=== PATIENT | male | born 1990 ===

== ENCOUNTER 2018-06-26 06:22 | Emergency (ER) | payer OTHER ==
[2018-06-26 06:39] VITALS: O2SAT 99
[2018-06-26] MEDS ORDERED: Sodium Chloride 0.9% 1,000 ML IV ONE (06:44)
[2018-06-26] MEDS ORDERED: Sucralfate 1 gm/10 ml Oral Susp UD PO STA (06:45)
--- NOTE | 2018-06-26 06:50 | C.PDOC ---
History Of Present Illness 28-year-old male presents to the ED for evaluation of epigastric abdominal pain which began 3 days ago. Patient reports associated nausea and two episodes of vomiting. Patient denies fever, chills, diarrhea, dysuria, or radiation of pain elsewhere. <Jaiden Rhodes - Last Filed: 06/26/18 06:50> History Per: Patient History/Exam Limitations: no limitations Onset/Duration Of Symptoms: Days (2) Current Symptoms Are (Timing): Still Present Location Of Pain/Discomfort: Epigastric Quality Of Discomfort: "Pain" Associated Symptoms: Nausea, Vomiting. denies: Fever, Chills, Diarrhea, Urinary Symptoms Additional History Per: Patient <Jaiden Rhodes - Last Filed: 06/26/18 06:50> <Brandon Smallwood - Last Filed: 06/26/18 08:33> Chief Complaint (Nursing): Abdominal Pain Past Medical History Reviewed: Historical Data, Nursing Documentation, Vital Signs Vital Signs: Last Vital Signs Temp 98.1 F 06/26/18 06:33 Pulse 70 06/26/18 06:33 Resp 22 06/26/18 06:33 BP 131/78 06/26/18 06:33 Pulse Ox 99 06/26/18 06:33 Primary Care Provider: FAMILY PROVIDER,NO - Medical History PMH: No Chronic Diseases Surgical History: No Surg Hx Family History: States: Unknown Family Hx - Social History Hx Alcohol Use: Yes Hx Substance Use: No <Jaiden Rhodes - Last Filed: 06/26/18 06:50> Vital Signs: Last Vital Signs Temp 98.1 F 06/26/18 06:33 Pulse 70 06/26/18 06:33 Resp 22 06/26/18 06:33 BP 131/78 06/26/18 06:33 Pulse Ox 99 06/26/18 06:50 <Brandon Smallwood - Last Filed: 06/26/18 08:33> Review Of Systems Constitutional: Negative for: Fever, Chills Gastrointestinal: Positive for: Nausea, Vomiting, Abdominal Pain (epigastric ). Negative for: Diarrhea Genitourinary: Negative for: Dysuria <Jaiden Rhodes - Last Filed: 06/26/18 06:50> Physical Exam - Physical Exam Appears: Non-toxic, No Acute Distress Skin: Normal Color, Warm, Dry Head: Atraumatic, Normacephalic Eye(s): bilateral: Normal Inspection Oral Mucosa: Moist Neck: Supple Chest: Symmetrical, No Deformity, No Tenderness Cardiovascular: Rhythm Regular, No Murmur Respiratory: Normal Breath Sounds, No Wheezing Gastrointestinal/Abdominal: Soft, Tenderness (epigastric ), No Guarding, No Rebound Extremity: Normal ROM, Capillary Refill (less than 2 seconds ) Neurological/Psych: Oriented x3, Normal Speech, Normal Cognition <Jaiden Rhodes - Last Filed: 06/26/18 06:50> ED Course And Treatment O2 Sat by Pulse Oximetry: 99 Progress Note: Bloodwork and urinalysis ordered and reviewed. Carafate Oral Syrup PO, Pepcid IVP, Zofran IVP and IV Fluids given. <Jaiden Rhodes Last Filed: 06/26/18 06:50> - Laboratory Results Result Diagrams: 06/26/18 07:11 06/26/18 07:11 <Brandon Smallwood - Last Filed: 06/26/18 08:33> Medical Decision Making Medical Decision Makin Signed out to me by Dr. Rhodes: 28 yr old male p/w abdominal pain, epigastric, gerd like. No other complaints of pain on exam. No fall or trauma. No CP or SOB. Pending labs, reassessment. 0739 cbc, cmp largely unremarkable lipase unremarkable no RUQ pain on exam. PT denies any chest pain, back pain or groin/ genitalia pain. pending UA. 2021 tolerated fluids well, in NAD, repeat abd exam non-ttp. UA w/ out UTI +hematuria, endorsed to pt to f/u w/ PMD and urologist, also endorsed need to f/u with GI. He is agreeable to plan clear for d/c home 0839 Patient states that he is feeling better, the pain to his chest has resolved, but he still has some pain to his back. Patient told that all labs are normal and that he appears to have gastritis. He will be given a referral for a gas troenterologist and urologist. Patient stable for discharge. <Brandon Smallwood - Last Filed: 06/26/18 08:33> Disposition <Jaiden Rhodes - Last Filed: 06/26/18 06:50> - Disposition Disposition Time: 08:23 <Brandon Smallwood - Last Filed: 06/26/18 08:33> - Disposition Referrals: [facility] [Outside] [facility] [Outside] [facility] [Outside] Manuela Barraza MD [Staff Provider] - Al Hodgson MD [Staff Provider] - Condition: STABLE Additional Instructions: SIMI CHEEK, thank you for letting us take care of you today. Your provider was Brandon Smallwood and you were treated for ABDOMINAL PAIN. The emergency medical care you received today was directed at your acute symptoms. If you were prescribed any medication, please fill it and take as directed. It may take several days for your symptoms to resolve. Return to the Emergency Dep artment if your symptoms worsen, do not improve, or if you have any other problems. Please contact your doctor or call one of the physicians/clinics you have been referred to that are listed on the Patient Visit Information form that is included in your discharge packet. Bring any paperwork you were given at discharge with you along with any medications you are taking to your follow up visit. Our treatment cannot replace ongoing medical care by a primary care provider outside of the emergency department. Thank you for allowing the [facility] team to be part of your care today. If you had an X-Ray or CT scan: A Radiologist will review the ED reading if any change in treatment is needed we will contact you. If you had a blood, urine, or wound culture: It will take several days for the results, if any change in treatment is needed we will contact you. If you had an STI test: It will take 48 hours for the results. Please call after 1 week if you have not heard back. Prescriptions: Famotidine [Pepcid] 20 mg PO Q24H PRN 5 Days #5 tab PRN Reason: Dyspepsia Instructions: Blood in the Urine (Hematuria) in Adults, Acute Abdomen (Belly Pain), Adult (DC), Gastritis (DC) Forms: [facility] (Persian), [facility] (German) Print Language: KINYARWANDA - Clinical Impression Clinical Impression: Gastritis, Abdominal pain, Hematuria - Scribe Statement The provider has reviewed the documentation as recorded by the Scribe (Gemini Gilbert) Provider Attestation: All medical record entries made by the Scribe were at my direction and personally dictated by me. I have reviewed the chart and agree that the record accurately reflects my personal performance of the history, physical exam, medical decision making, and the department course for this patient. I have also personally directed, reviewed, and agree with the discharge instructions and disposition. <Jaiden Rhodes - Last Filed: 06/26/18 06:50>
[2018-06-26] MEDS ORDERED: Sodium Chloride 0.9% 1,000 ML ONE (07:01)
[2018-06-26 07:22] LABS: BASO % 0.3 % (0.0-2.0); EOS # 0.1 K/uL (0.0-0.7); EOS % 0.9 % (0.0-4.0); HEMOGLOBIN 15.1 g/dL (12.0-18.0); LYMPH # 1.9 K/uL (1.0-4.3); LYMPH % 23.9 % (20.0-40.0); MEAN CELL VOLUME 93.8 fL (80.0-94.0); MEAN CORPUSCULAR HEMOGLOBIN 33.4 pg (27.0-31.0); MEAN CORPUSCULAR HGB CONC 35.6 g/dL (33.0-37.0); MONO # 0.4 K/uL (0.0-0.8); MONO % 5.6 % (0.0-10.0); NEUT # 5.5 K/uL (1.8-7.0); NEUT % 69.3 % (50.0-75.0); RBC 4.53 Mil/uL (4.40-5.90); RED CELL DISTRIBUTION WIDTH 14.1 % (11.5-14.5); WHITE BLOOD COUNT 7.9 K/uL (4.8-10.8)
[2018-06-26 07:38] LABS: ALB/GLOB RATIO 1.3 (1.0-2.1); ALBUMIN 4.2 g/dL (3.5-5.0); ALT/SGPT 74 U/L (21-72); AST/SGOT 37 U/L (17-59); BLOOD UREA NITROGEN 12 mg/dL (9-20); CALCIUM 9.7 mg/dl (8.6-10.4); GFR NON-AFRICAN AMERICAN > 60; LIPASE 100 U/L (23-300)
[2018-06-26 08:12] LABS: SQUAMOUS EPITHIAL < 1 /hpf (0-5); URINE BILIRUBIN NEGATIVE (NEGATIVE); URINE BLOOD NEGATIVE (NEGATIVE); URINE CLARITY Clear (Clear); URINE COLOR Yellow (YELLOW); URINE GLUCOSE (UA) NORMAL (Normal); URINE LEUKOCYTE ESTERASE NEG Leu/uL (Negative); URINE PROTEIN NEGATIVE (NEGATIVE)
[2018-06-26 08:46] VITALS: BP 129/77; PULSE 61; RESP 20; TEMP 98.2
== END 2018-06-26 08:55 | disposition home or self-care (01) ==
LOC: C.ER 06:22
DX: K29.70 Gastritis, unspecified, without bleeding (principal); R31.9 Hematuria, unspecified
CPT/HCPCS: 80053; 81001; 83690; 85025; 96374; 96375; 99285; J2405; J7030